=== PATIENT | female | born 1995 | race Caucasian/White ===

== ENCOUNTER 2018-04-01 14:10 | Inpatient (IN) | payer OTHER ==
[~2018-04-01] VITALS: Ht 162.6 cm; Wt 99.8 kg
[2018-04-01] MEDS: LACTATED RINGERS 1,000 ML IV SCH ×2 (00:27→16:54)
[2018-04-01] MEDS ORDERED: PROMETHAZINE 25 MG/ML VIAL IVP PRN (15:10)
[2018-04-01] MEDS ORDERED: METHYLERGONOVINE 0.2 MG/ML AMP IM PRN (15:10)
[2018-04-01] MEDS ORDERED: CARBOPROST 250 MCG/ML AMP IM PRN (15:10)
[2018-04-01] MEDS ORDERED: OXYTOCIN 10 UNITS/ML VIAL IM SCH (15:10)
[2018-04-01] MEDS ORDERED: NALBUPHINE 10 MG/ML AMP IVP PRN (15:10)
[2018-04-01] MEDS ORDERED: FERR325E14 PO (15:29)
[2018-04-01] MEDS ORDERED: PREN-380 PO (15:29)
[2018-04-01 15:31] VITALS: BP 135/80
[2018-04-01 15:47] LABS: BASOPHILS % (AUTO) 0.5 % (0.0-2.0); EOSINOPHILS # (AUTO) 0.1 K/uL (0-0.4); EOSINOPHILS % (AUTO) 1.3 % (0.0-4.0); HEMATOCRIT 30.2 % (36-48); HEMOGLOBIN 10.2 g/dL (12.0-16.0); LYMPHOCYTES # (AUTO) 1.9 K/uL (2.5-16.5); LYMPHOCYTES % (AUTO) 19.6 % (20.5-51.1); MEAN CORPUSCULAR HEMOGLOBIN 28 pg (27-31); MEAN CORPUSCULAR HGB CONC 34 g/dL (33-37); MEAN CORPUSCULAR VOLUME 83.4 fL (80-94); MONOCYTES # (AUTO) 0.7 K/uL (0.8-1.0); MONOCYTES % (AUTO) 7.3 % (1.7-9.3); NEUTROPHILS # (AUTO) 6.9 K/uL (1.8-7.7); NEUTROPHILS % (AUTO) 71.3 % (42.2-75.2); PLATELET COUNT (AUTO) 230 K/uL (140-450); RED BLOOD CELL COUNT(AUTO) 3.63 MIL/uL (4.20-5.40); WHITE BLOOD COUNT (AUTO) 9.6 K/uL (4.5-11.0)
[2018-04-01 15:59] LABS: APPEARANCE,URINE CLEAR (CLEAR); BILIRUBIN,URINE NEGATIVE (NEGATIVE); BLOOD, URINE NEGATIVE (NEGATIVE); COLOR,URINE YELLOW (YELLOW); LEUKOCYTE ESTERASE ,URINE NEGATIVE (NEGATIVE); NITRITE, URINE NEGATIVE (NEGATIVE); PH,URINE 7.5 (5.0-9.0); UGLUCOSE NEGATIVE (NEGATIVE)
[2018-04-01 16:02] LABS: CARBON DIOXIDE 20.8 mmol/L (21-32); CREATININE 0.6 mg/dL (0.6-1.3); POTASSIUM 3.8 mmol/L (3.5-5.1)
[2018-04-01 16:09] LABS: ALBUMIN 2.4 g/dL (3.4-5.0); TOTAL BILIRUBIN 0.2 mg/dL (0.0-1.0)
[2018-04-01] MEDS ORDERED: NALBUPHINE 10 MG/ML AMP ONE (17:05)
[2018-04-01] MEDS ORDERED: MISOPROSTOL 25 MCG TAB ONE (19:39)
[2018-04-01] MEDS ORDERED: OXYTOCIN 20 UNITS in LACTATED RINGERS 1,000 ML IV SCH (19:40)
[2018-04-01] MEDS ORDERED: TERBUTALINE 1 MG/ML VIAL SUBQ ONE (19:50)
[2018-04-01] MEDS: TERBUTALINE 1 MG/ML VIAL SUBQ SCH ×2 (21:44→21:45)
[2018-04-02] MEDS: TERBUTALINE 2.5 MG TAB PO SCH ×4 (00:21→12:24)
[2018-04-02] MEDS: LACTATED RINGERS 1,000 ML IV SCH ×2 (00:27→10:25)
[2018-04-02] MEDS ORDERED: TERBUTALINE 2.5 MG TAB ONE ×4 (00:27→12:28)
--- NOTE | 2018-04-02 08:39 | NUR ---
PATIENT HAS BEEN SCREENED AND CATEGORIZED LOW NUTRITION RISK. PATIENT WILL BE SEEN WITHIN 7 DAYS OF ADMISSION. 04/08/[address]
== END 2018-04-02 15:20 | disposition home or self-care (01) | DRG 565 ==
LOC: MLD 14:10 → OBSVTOIN 14:45
PROVIDERS: ADMIT Obstetrics & Gynecology; ATTEND Obstetrics & Gynecology
DX: O47.1 False labor at or after 37 completed weeks of gestation (principal); Z3A.37 37 weeks gestation of pregnancy
CPT/HCPCS: 36415; 76805; 80053; 81003; 85025; 85379; 86592; 86886; 86900; 86901; G0378; J2300; J3105; J7120; Q0092

== ENCOUNTER 2018-04-04 16:09 | Inpatient (IN) | payer OTHER ==
[~2018-04-04] VITALS: Ht 162.6 cm; Wt 99.8 kg
[~2018-04-04 16:09] MED LIST: FERR325E14 PO; PREN-380 PO
[2018-04-04] MEDS ORDERED: MISOPROSTOL 25 MCG TAB ONE (20:08)
[2018-04-04] MEDS ORDERED: LACTATED RINGERS 1,000 ML IV SCH (20:16)
[2018-04-04] MEDS ORDERED: LACTATED RINGERS 500 ML IV ONE (20:20)
[2018-04-04] MEDS ORDERED: OXYTOCIN 10 UNITS/ML VIAL IM SCH (20:20)
[2018-04-04] MEDS ORDERED: MISOPROSTOL 25 MCG TAB VG ONE (20:20)
[2018-04-04 20:58] LABS: BASOPHILS % (AUTO) 0.4 % (0.0-2.0); EOSINOPHILS # (AUTO) 0.1 K/uL (0-0.4); EOSINOPHILS % (AUTO) 0.6 % (0.0-4.0); HEMATOCRIT 28.3 % (36-48); HEMOGLOBIN 9.5 g/dL (12.0-16.0); LYMPHOCYTES # (AUTO) 1.8 K/uL (2.5-16.5); LYMPHOCYTES % (AUTO) 20.4 % (20.5-51.1); MEAN CORPUSCULAR HEMOGLOBIN 28 pg (27-31); MEAN CORPUSCULAR HGB CONC 34 g/dL (33-37); MONOCYTES # (AUTO) 0.7 K/uL (0.8-1.0); MONOCYTES % (AUTO) 8.2 % (1.7-9.3); NEUTROPHILS # (AUTO) 6.3 K/uL (1.8-7.7); NEUTROPHILS % (AUTO) 70.4 % (42.2-75.2); PLATELET COUNT (AUTO) 198 K/uL (140-450); RED BLOOD CELL COUNT(AUTO) 3.37 MIL/uL (4.20-5.40); RED CELL DISTRIBUTION WIDTH 16.1 % (11.6-13.7); WHITE BLOOD COUNT (AUTO) 8.9 K/uL (4.5-11.0)
[2018-04-04 22:54] LABS: APPEARANCE,URINE CLEAR (CLEAR); BILIRUBIN,URINE NEGATIVE (NEGATIVE); BLOOD, URINE NEGATIVE (NEGATIVE); COLOR,URINE YELLOW (YELLOW); LEUKOCYTE ESTERASE ,URINE NEGATIVE (NEGATIVE); NITRITE, URINE NEGATIVE (NEGATIVE); UGLUCOSE NEGATIVE (NEGATIVE)
[2018-04-05] MEDS ORDERED: NALBUPHINE 10 MG/ML AMP ONE (00:51)
[2018-04-05] MEDS ORDERED: PROMETHAZINE 25 MG/ML VIAL ONE (00:51)
[2018-04-05] MEDS ORDERED: PROMETHAZINE 25 MG/ML VIAL IM PRN (01:00)
[2018-04-05] MEDS ORDERED: NALBUPHINE 10 MG/ML AMP IVP PRN (01:00)
[2018-04-05] MEDS ORDERED: LABETALOL 200 MG TAB ONE (01:37)
[2018-04-05] MEDS ORDERED: BUPIVACAINE 0.125%/NS PREMIX 250 ML ONE (01:48)
[2018-04-05] MEDS ORDERED: LABETALOL 200 MG TAB PO SCH (02:00)
[2018-04-05] MEDS ORDERED: BUPIVACAINE 0.125%/NS PREMIX 250 ML EPI SCH (02:10)
[2018-04-05] MEDS ORDERED: OXYTOCIN 20 UNITS in LACTATED RINGERS 1,000 ML IV SCH ×2 (03:00→12:27)
[2018-04-05] MEDS ORDERED: OXYTOCIN 20 UNITS/LR PREMIX 1,000 ML IV ONE (06:56)
[2018-04-05] MEDS ORDERED: OXYTOCIN 10 UNITS/ML VIAL ONE (06:57)
[2018-04-05] MEDS ORDERED: LIDOCAINE/EPI MPF 2%1:200000 10 ML VIAL INJ ONE (08:27)
[2018-04-05] MEDS ORDERED: BISACODYL 5 MG TABEC PO PRN (12:30)
[2018-04-05] MEDS ORDERED: MEASLES, MUMPS, AND RUBELLA 1 VIAL SQVAC PRN (12:30)
[2018-04-05] MEDS: IBUPROFEN 600 MG TAB PO PRN (12:42)
[2018-04-05] MEDS: ACETAMINOPHEN 325 MG TAB PO PRN (15:09)
[2018-04-05] MEDS ORDERED: oxyCODONE/APAP 5/325 MG 1 TAB TAB PO PRN (15:30)
[2018-04-06] MEDS: ACETAMINOPHEN 325 MG TAB PO PRN ×2 (02:49→18:00)
[2018-04-06 10:05] LABS: BASOPHILS % (AUTO) 0.4 % (0.0-2.0); EOSINOPHILS # (AUTO) 0.1 K/uL (0-0.4); EOSINOPHILS % (AUTO) 0.9 % (0.0-4.0); HEMATOCRIT 30.2 % (36-48); HEMOGLOBIN 9.8 g/dL (12.0-16.0); LYMPHOCYTES # (AUTO) 2.8 K/uL (2.5-16.5); LYMPHOCYTES % (AUTO) 21.7 % (20.5-51.1); MEAN CORPUSCULAR HEMOGLOBIN 28 pg (27-31); MEAN CORPUSCULAR HGB CONC 33 g/dL (33-37); MEAN CORPUSCULAR VOLUME 85.8 fL (80-94); MONOCYTES # (AUTO) 0.8 K/uL (0.8-1.0); MONOCYTES % (AUTO) 5.9 % (1.7-9.3); NEUTROPHILS # (AUTO) 9.3 K/uL (1.8-7.7); NEUTROPHILS % (AUTO) 71.1 % (42.2-75.2); PLATELET COUNT (AUTO) 213 K/uL (140-450); RED BLOOD CELL COUNT(AUTO) 3.52 MIL/uL (4.20-5.40); RED CELL DISTRIBUTION WIDTH 16.4 % (11.6-13.7)
--- NOTE | 2018-04-06 11:51 | NUR ---
PATIENT HAS BEEN SCREENED AND CATEGORIZED LOW NUTRITION RISK. PATIENT WILL BE SEEN WITHIN 7 DAYS OF ADMISSION. 04/11/18 CURLY BESS MBA, RD
[2018-04-07] MEDS: IBUPROFEN 600 MG TAB PO PRN ×2 (10:35→16:00)
== END 2018-04-07 17:30 | disposition home or self-care (01) | DRG 560 ==
LOC: UNDOADMIN 16:09 → MLD 16:09 → OBSVTOIN 20:16 → MFCC 04-05 11:31
PROVIDERS: ADMIT Obstetrics & Gynecology; ATTEND Obstetrics & Gynecology
PROC: 10E0XZZ Delivery of Products of Conception, External Approach (ICD-10-PCS; principal; 2018-04-05)
PROC: 00HU33Z Insertion of Infusion Device into Spinal Canal, Percutaneous Approach (ICD-10-PCS; 2018-04-05)
PROC: 3E0R3BZ Introduction of Anesthetic Agent into Spinal Canal, Percutaneous Approach (ICD-10-PCS; 2018-04-05)
DX: O41.03X0 Oligohydramnios, third trimester, not applicable or unspecified (principal); E66.9 Obesity, unspecified; Z37.0 Single live birth; O14.94 Unspecified pre-eclampsia, complicating childbirth; O99.214 Obesity complicating childbirth; Z3A.39 39 weeks gestation of pregnancy; Z28.21 Immunization not carried out because of patient refusal
CPT/HCPCS: G0378 ×4; 36415; 51702; 59200; 59409; 76815; 81003; 85025; 86592; 86886; 86900; 86901; 87081; J2001; J2300; J2550; J2590; J3490; J7120; Q0092

== ENCOUNTER 2018-04-09 14:50 | Emergency (ER) | payer OTHER ==
[~2018-04-09] VITALS: Ht 162.6 cm; Wt 90.7 kg
[2018-04-09 15:10] VITALS: BP 157/106
[2018-04-09] MEDS ORDERED: NACL 0.9% 1,000 ML IV ONE (18:15)
[2018-04-09] MEDS ORDERED: METOCLOPRAMIDE 10 MG/2 ML INJ VIAL IVP ONE (18:15)
[2018-04-09] MEDS ORDERED: diphenhydrAMINE 50 MG/ML VIAL IVP ONE (18:15)
[2018-04-09] MEDS ORDERED: KETOROLAC 30 MG/ML VIAL IVP ONE (23:15)
[2018-04-10 01:11] VITALS: BP 147/96
== END 2018-04-10 01:11 | disposition home or self-care (01) ==
LOC: MED 14:50
DX: T88.59XA Other complications of anesthesia, initial encounter (principal); G44.40 Drug-induced headache, not elsewhere classified, not intractable
CPT/HCPCS: 81002; 81025; 96361; 96374; 96375; 99283; J1200; J1885; J2765; J7030; 62273

== ENCOUNTER 2019-10-07 06:02 | Day surgery (SDC) | payer OTHER, SELFPAY ==
[~2019-10-07] VITALS: Ht 162.6 cm; Wt 81.6 kg
[2019-10-07] MEDS ORDERED: fentaNYL 0.05 MG/ML VIAL ONE (07:39)
[2019-10-07] MEDS ORDERED: LIDOCAINE 2% 100 MG/5 ML UJET TP ONE (07:40)
[2019-10-07] MEDS ORDERED: MIDAZOLAM 2 MG/2 ML VIAL ONE (07:40)
[2019-10-07] MEDS ORDERED: fentaNYL 0.05 MG/ML VIAL IVP ONE (08:03)
[2019-10-07] MEDS ORDERED: MIDAZOLAM 2 MG/2 ML VIAL IVP ONE (08:05)
== END 2019-10-07 09:35 | disposition home or self-care (01) ==
LOC: MDS 06:02 → MMU 06:05 → MDS 09:35 → MERGE 12:10
PROVIDERS: ATTEND Internal Medicine Gastroenterology
DX: K62.5 Hemorrhage of anus and rectum (principal); K59.00 Constipation, unspecified; K64.4 Residual hemorrhoidal skin tags
CPT/HCPCS: 36415; 45378; 81025; J2250; J3010

== ENCOUNTER 2023-11-30 17:45 | Emergency (ER) | payer SELFPAY ==
[~2023-11-30] VITALS: Ht 167.6 cm; Wt 100.2 kg
[2023-11-30 17:54] VITALS: BP 120/73; PULSE 88; RESP 18; TEMP 98; O2SAT 99
[2023-11-30 18:41] LABS: BASOPHILS # (AUTO) 0.1 K/uL (0.00-0.22); BASOPHILS % (AUTO) 0.8 % (0.0-2.0); EOSINOPHILS # (AUTO) 0.1 K/uL (0-0.4); EOSINOPHILS % (AUTO) 0.6 % (0.0-4.0); HEMATOCRIT 37.2 % (36-48); HEMOGLOBIN 12.3 g/dL (12.0-16.0); LYMPHOCYTES % (AUTO) 22.4 % (20.5-51.1); MEAN CORPUSCULAR HEMOGLOBIN 30 pg (27-31); MEAN CORPUSCULAR HGB CONC 33 g/dL (33-37); MEAN CORPUSCULAR VOLUME 89.2 fL (80-94); MONOCYTES # (AUTO) 0.6 K/uL (0.8-1.0); MONOCYTES % (AUTO) 7.1 % (1.7-9.3); NEUTROPHILS # (AUTO) 6.1 K/uL (1.8-7.7); NEUTROPHILS % (AUTO) 69.1 % (42.2-75.2); PLATELET COUNT (AUTO) 286 K/uL (140-450); RED BLOOD CELL COUNT(AUTO) 4.17 MIL/uL (4.20-5.40); RED CELL DISTRIBUTION WIDTH 14.1 % (11.6-13.7); WHITE BLOOD COUNT (AUTO) 8.9 K/uL (4.8-10.8)
[2023-11-30] MEDS: FAMOTIDINE 20 MG/2 ML VIAL IVP ONE (18:54)
[2023-11-30] MEDS: ONDANSETRON 4 MG/2 ML VIAL IVP ONE (18:54)
[2023-11-30] MEDS: NACL 0.9% 1,000 ML IV ONE (18:55)
[2023-11-30 19:01] LABS: CARBON DIOXIDE 30.6 mmol/L (21-32); CREATININE 0.8 mg/dL (0.6-1.3); POTASSIUM 3.6 mmol/L (3.5-5.1)
[2023-11-30 19:05] LABS: ALBUMIN 4.2 g/dL (3.4-5.0); BILIRUBIN,DIRECT 0.1 mg/dL (0.0-0.3); TOTAL BILIRUBIN 0.5 mg/dL (0.0-1.0); TOTAL PROTEIN, SERUM 8.4 g/dL (6.4-8.2)
[2023-11-30 19:12] VITALS: BP 120/73; PULSE 88; RESP 18; TEMP 98
[2023-11-30 19:16] VITALS: O2SAT 99
[2023-11-30 19:21] LABS: APPEARANCE,URINE CLEAR (CLEAR); BILIRUBIN,URINE NEGATIVE (NEGATIVE); BLOOD, URINE 1+ (NEGATIVE); COLOR,URINE YELLOW (YELLOW); LEUKOCYTE ESTERASE ,URINE NEGATIVE (NEGATIVE); NITRITE, URINE NEGATIVE (NEGATIVE); PROTEIN,URINE TRACE (NEGATIVE); UGLUCOSE NEGATIVE (NEGATIVE); UROBILINOGEN,URINE 0.2 EU/dL (0.2 - 1)
[2023-11-30 19:28] LABS: FLU A ANTIGEN negative (NEGATIVE); FLU B ANTIGEN NEGATIVE (NEGATIVE)
[2023-11-30 19:30] LABS: BACTERIA,URINE FEW /HPF (None Seen); MUCUS,URINE None Seen /LPF (None Seen); SQUAMOUS EPITHELIAL CELL,UR 0-3 (FEW) /LPF (0-3 (FEW)); WBC,URINE 0-5 /HPF (0-5)
[2023-11-30 19:31] LABS: TRICHOMONAS,URINE None Seen /HPF (None Seen); YEAST,URINE None Seen /HPF (None Seen)
[2023-11-30] MEDS ORDERED: LOPE-289 PO (19:49)
[2023-11-30] MEDS ORDERED: ONDA-188 SL (19:49)
== END 2023-11-30 20:56 | disposition home or self-care (01) ==
LOC: MED 17:45
DX: R10.33 Periumbilical pain (principal); R11.10 Vomiting, unspecified; R19.7 Diarrhea, unspecified; Z90.49 Acquired absence of other specified parts of digestive tract; Z20.822 Contact with and (suspected) exposure to COVID-19; Z79.899 Other long term (current) drug therapy
CPT/HCPCS: 36415; 80048; 80076; 81001; 81025; 83690; 85025; 87426; 87804; 96361; 96374; 96375; 99284; J2405; J3490; J7030